=== PATIENT | female | born 1945 | race Caucasian/White ===

== ENCOUNTER 2017-07-20 15:29 | Inpatient (IN) | payer OTHER ==
[2017-07-20] MEDS ORDERED: METHOCARBAMOL 500 MG TAB PO PRN (17:38)
[2017-07-20] MEDS ORDERED: BENZONATATE 100 MG CAP PO PRN (17:38)
[2017-07-20] MEDS ORDERED: SENNOSIDES 1 TAB PO PRN (17:55)
[2017-07-20] MEDS ORDERED: POLYETHYLENE GLYCOL 3350 17 GM PKT PO PRN (17:55)
[2017-07-20] MEDS ORDERED: HYDROCODONE/APAP 5/325 TAB PO PRN (17:55)
--- NOTE | 2017-07-20 19:08 | GHP ---
[f rep st] HISTORY AND PHYSICAL POST ADMISSION PHYSICIAN EVALUATION AND REHABILITATION TREATMENT PLAN DATE OF ADMISSION: 07/20/2017 DATE OF EVALUATION: 07/20/2017. TIME OF EVALUATION: 1715 hours. REFERRING FACILITY: [facility]. REFERRING PHYSICIAN: Richard Rueda MD IMPAIRMENT GROUP: 2.1. DATE OF ONSET: 07/15/2017. ADDITIONAL REFERRING PHYSICIAN: She was also managed by the hospitalist service. 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 ETIOLOGIC DIAGNOSIS: Nontraumatic brain dysfunction. HISTORY OF PRESENT ILLNESS: This is a 71-year-old woman who came to [facility] on 07/15/2017. She had a headache, right facial droop, and right arm weakness. She had awakened with these symptoms and her had called 911 earlier in the evening. She had taken some cold medicine and had an accidental aspiration and violent coughing fit. She had had upper respiratory symptoms going on for several days, for which she had been taking NyQuil, as well as ibuprofen and aspirin. Head CT in the hospital showed intraparenchymal hemorrhage in the left basal ganglia suggestive of hypertensive hemorrhage. She was treated with a nicardipine infusion and admitted to the intensive care unit. She was eventually transitioned to oral antihypertensives. She had a urinalysis suggestive of a urinary tract infection and was treated with ceftriaxone IV for it. She was otherwise medically stabilized and ready for rehabilitation. STUDIES: During her hospital stay, CBC was within normal limits. Hemoglobin was 13.5 and hematocrit was 39.8 on 07/19/2017. There was no elevated white blood cell count during her stay. Serum chemistries revealed normal renal function and electrolytes. Creatinine was 0.67 both on admission and on 2 subsequent determinations, 07/18/2017 and 07/19/2017. Liver function tests were within normal limits. Hemoglobin A1c was checked and was slightly elevated at 5.7. Magnesium was normal. Serum osmolarity was normal. Coagulation studies were normal. Troponin I was less than 0.017. Urinalysis showed positive nitrite. It was negative for protein. Microscopic showed 3+ bacteria. The urine red and white blood cell counts were not abnormal. PRECAUTIONS: She is a fall risk. ACTIVE COMORBIDITIES: She has no active tier 1, tier 2, or tier 3 comorbidities. PAST MEDICAL HISTORY: Supraventricular tachycardia. PAST SURGICAL HISTORY: She has had a transcatheter ablation for the tachycardia. PREHOSPITAL MEDICATIONS: She was taking aspirin and cold medicine. ADMISSION MEDICATIONS: 1. Acetaminophen 650 mg p.o. q.4 hours p.r.n. 2. Amlodipine 10 mg p.o. daily. 3. Benzonatate 100 mg p.o. q.4 hours p.r.n. 4. Cefuroxime axetil 250 mg p.o. twice daily. 5. Docusate 100 mg p.o. daily. 6. Famotidine 20 mg p.o. twice daily. 7. Fluticasone nasal 1 spray each naris twice daily. 8. Heparin 5000 units subcutaneous twice daily. 9. Methocarbamol 250 mg p.o. q.6 hours p.r.n. ALLERGIES: There is an allergy listed to penicillins. PSYCHOSOCIAL HISTORY: She is . She lives with her . 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 She [place] and is [place] to visit tomorrow and she has 2 grandchildren. She has a remote history of smoking and quit in 1969. She had been drinking approximately 2 glasses of wine per night but reports that she is not going to return to that level of alcohol consumption. FAMILY HISTORY: Noncontributory. REVIEW OF SYSTEMS: She still has a cough. She denies dyspnea. She denies difficulty swallowing. She denies vision changes. She has had some neuropathic -type symptoms on the right side of her body, as well as some back pain. She has had improvement in her ability to move but still has weakness and lack of coordination in the right upper and lower extremities. She has reduced sensation in her right upper and lower extremities, though this has been improving as well. She denies nausea or vomiting. She has had some constipation but has been moving her bowels. She denies dysuria or urinary frequency. She denies joint pain or joint swelling. She denies skin rash or skin breakdown. Otherwise, a 10-point review of systems is negative. PHYSICAL EXAMINATION: VITAL SIGNS: Blood pressure is 113/67, heart rate is 95 , respiratory rate is 16, oxygen saturation is 94% on room air. Temperature is 36.9 degrees centigrade. Her weight is 64.5 kg for a body mass index of 26. GENERAL: This is a well-nourished, well-developed woman, appears her chronologic age, sitting up in a chair, dressed in street clothes, cooperative, and in no acute distress. HEENT: Extraocular movements are intact. Pupils are equal, round, and reactive to light. Mucous membranes are moist. Dentition is in good condition. She has an uncrowded airway, Mallampati class 1. There are no oropharyngeal mucosal lesions. NECK: Supple. HEART: There is a regular rate and rhythm with no murmurs, rubs, or gallops. LUNGS: Clear to auscultation bilaterally. ABDOMEN: Soft, nontender, nondistended with normoactive bowel sounds and no hepatosplenomegaly. EXTREMITIES: There is no cyanosis, clubbing, or edema. NEUROLOGIC: She is alert and oriented x3. She has very mild dysarthria. Cranial nerves 2-12 are grossly intact. She has decent strength in the right upper and lower extremities overall, , but she takes some time to develop power. Quick Sketch Artist strength i in the right hand s not more than 4/5, and she is unable to abduct her shoulder fully to 90 degrees and she has ataxia on the right upper extremity. On the left upper and lower extremities, there is no weakness. Sensation on the right is present but reduced to light touch, reduced more so distally, both in the upper and lower extremities. Visual costa by confrontation are suggestive of a mild deficit on the right field of vision, more so in the right lower quadrant than the right upper quadrant. Attempted [id number] on the right side is discoordinated. Regarding pronator drift, on the right, to the extent that she can raise the arm, when she closes her eyes, her fingers curl and there is a minor pronator drift noted. CURRENT LEVEL OF FUNCTION: Per the pre-admission screen: regarding diet, feeding, and swallowing, she is on a regular diet with thin liquids. She required minimal assist for feeding and maximal assist to cut food, open containers, and set up her meal. She had dysphagia precautions with swallow strategies, required to be upright at 90 degrees for all p.o. intake, to take small single bites, to swallow each bite or sip before the next one. Regarding bathing, she required assistance. For dressing, she required assistance. For toileting, she required maximal assistance for caridad care and minimal assistance for transfers to the bedside commode. Bed mobility was accomplished with minimal to moderate assist to the left with the head of the bed elevated and voice cues to arise from supine to the edge of the bed. Transfers were done with minimal assist for [id number] with manual cues for right quadriceps activation and with cues for lateral weight shifting and sequencing. She used a front-wheeled walker. She was able to ambulate 50 feet with minimal assist. She required an Kang wrap to attach her right hand to the walker. She required cues for proper positioning of the right lower extremity inside her base of support. There was an inconsistent step length. She had improved stability of the right lower extremity with use of an AFO. Regarding balance, static sitting required minimal assist. Dynamic sitting required minimal assist. Static standing required moderate assist of 2 and dynamic standing required moderate assist of 2. Her endurance was fair. She ambulated 20 feet with moderate assist of 2. She required moderate assistance to maintain hip in extension and activate the quads and maximal cues for sequencing. Regarding communication, she was noted to have mild dysphagia and word-finding pauses. Regarding cognition, she was noted to be able to follow commands but to have some aphasia. IMPRESSION: This is a 71-year-old woman who had a hemorrhagic cerebrovascular accident on 07/15/2017. She was managed by the neurosurgery service at [facility], but no surgery was required. She has had some improvement in her deficits, in particular with improved strength in the right upper and lower extremities and improvement in dysphagia. However, she continues to have significant deficits to mobility and activities of daily living and more subtle deficits to communication and cognition. She does not have a prior history of hypertension, though hypertension was thought to be the etiology of the hemorrhage. She had symptoms of an upper respiratory infection for some time prior to admission and it could be the NSAIDs that she was taking for symptom management had raised her blood pressure. Additionally, the coughing fit that she suffered may also have resulted in acutely high blood pressure. She is currently well managed regarding blood pressure on amlodipine. It will be observed during her stay whether she needs the dose that she is on or whether it can be reduced. She is appropriately anticoagulated with subcutaneous heparin as she has hemiparesis and reduced mobility. Her goal is to complete a rehabilitation stay and discharge to home with supportive services. For a safe discharge, it is anticipated that she will be able to sit independently at the edge of the bed. She will achieve modified independence for eating. She likely will require supervision for bed mobility, contact guard for transfers and for ambulation for short distances with a erendira walker. She will be able to navigate a wheelchair independently. She will require contact guard to minimal assist for dressing. She will require assistance for bathing, shopping, household management, and meal preparation. She will be able to tolerate the least restrictive device. She will have therapy with Physical Therapy, Occupational Therapy, and Speech and Language Pathology for 60 minutes per day per discipline on 7 days of the week. Her expected duration of stay is 14-21 days. It is anticipated that upon discharge she will continue to benefit from home health services including nursing, speech and language pathology, a nurse's aide , occupational therapy, and physical therapy. She also will benefit from support groups including possibly stroke or brain injury support groups. PLAN: 1. Left basal ganglia hemorrhagic stroke with right upper and lower extremity weakness, ataxia, and reduced sensation. PT and OT to optimize mobility and activities of daily living for her discharge home with supervision or assistance per . 2. Mild dysarthria and mild expressive aphasia. Assessment and treatment per Speech and Language Pathology. 3. Hypertension. She currently is normotensive on 10 mg of amlodipine. Blood pressure will be monitored and medications adjusted as needed. 4. History of regular alcohol use. This also may have increased blood pressure. She reports that she is interested in drinking less or drinking not all. This can be further assessed per manager social on the unit regarding any specific needs that she might have upon discharge. 5. Episode of neuropathic pain. May be related to return of sensation to the upper and lower extremities. She reports that [place] was effective to treat this while she was in the hospital. I will prescribe this on a p.r.n. basis. If she has persistent neuropathic symptoms, she might be better served with treatment with gabapentin. 6. Possible urinary tract infection. The urinalysis was somewhat suggestive, but she had no elevated white blood cells in the urine or elevated white blood cells on CBC and she has not had symptoms. She has had 5 days of antibiotics. I will not continue the cefuroxime that was prescribed out of the hospital. 7. Upper respiratory infection and cough. Continue benzonatate on a p.r.n. basis, as well as fluticasone nasal spray. 8. Prophylaxis. Will continue subcutaneous heparin as she is at elevated risk for deep vein thrombosis with hemiparesis and reduced mobility. Will additionally continue famotidine for gastrointestinal prophylaxis while she is on the heparin. FOLLOWUP: Unclear from hospital orders at present, but she will likely need followup with neurosurgeon, Dr. Rueda, likely after her discharge from inpatient rehabilitation. /[id number]/MODL MTDD
[2017-07-20] MEDS ORDERED: CEFUROXIME AXETIL 250 MG TAB PO SCH (21:00)
[2017-07-20] MEDS: FLUTICASONE NASAL 120 SPRAYS/16 GM MDI EACHNARE SCH (21:18)
[2017-07-20] MEDS: HEPARIN 5,000 UNIT/0.5 ML SYR SC SCH (21:27)
[2017-07-20] MEDS: FAMOTIDINE 20 MG TAB PO SCH (21:27)
[2017-07-21] MEDS: DOCUSATE SODIUM 100 MG CAP PO SCH (08:40)
[2017-07-21] MEDS: FAMOTIDINE 20 MG TAB PO SCH ×2 (08:40→21:32)
[2017-07-21] MEDS: HEPARIN 5,000 UNIT/0.5 ML SYR SC SCH ×2 (09:08→21:32)
[2017-07-21] MEDS: FLUTICASONE NASAL 120 SPRAYS/16 GM MDI EACHNARE SCH (09:10)
--- NOTE | 2017-07-21 09:32 | SOAPPROG ---
SOAP Progress Note Assessment/Plan: Assessment: 71-year-old woman status post left basal ganglia hemorrhagic CV on 07/15/2017, thought to be hypertensive in etiology possibly due to NSAID use, URI and paroxysmal coughing. 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 PT and OT to optimize mobility and activities of daily living for her discharge home with supervision or assistance per . * Mild dysarthria and mild expressive aphasia. Assessment and treatment per Speech and Language Pathology. *Hypertension. She currently is normotensive on 10 mg of amlodipine. Blood pressure will be monitored and medications adjusted as needed. * History of regular alcohol use. This also may have increased blood pressure. She reports that she is interested in drinking less or drinking not all. This can be further assessed per protective services social worker on the unit regarding any specific needs that she might have upon discharge. * Neuropathic pain.? May be related to return of sensation to the upper and lower extremities. Acetaminophen/hydrocodone has been prescribed as she reports this was helpful in the hospital but she has not used it. If she has consistent neuropathic symptoms, consider initiation of gabapentin. * Possible urinary tract infection. S/P 5 days of antibiotics. Unclear if she truly had a UTI. Monitor for return of symptoms. *Upper respiratory infection and cough. Continue benzonatate on a p.r.n. basis , as well as fluticasone nasal spray. * Prophylaxis. Will continue subcutaneous heparin as she is at elevated risk for deep vein thrombosis with hemiparesis and reduced mobility. Will additionally continue famotidine for gastrointestinal prophylaxis while she is on the heparin. FOLLOWUP: Unclear from hospital orders at present, but she will likely need followup with neurosurgeon, Dr. Rueda, likely after her discharge from inpatient rehabilitation. 07/21/17 13:35 Subjective: Reports some nasal congestion. No cough or dyspnea, no fevers or chills not in pain. Slept well. Objective: Vital Signs Temp Pulse Resp BP Pulse Ox 37.0 C 90 15 100/94 H 91 L 07/21/17 06:46 07/21/17 06:46 07/21/17 06:46 07/21/17 06:46 07/21/17 06:46 07/20/17 07/21/17 07/22/17 05:59 05:59 05:59 Intake Total 200 100 Output Total 500 350 Balance -300 -250 Physical Exam - Physical Exam General Appearance: WD/WN, alert, no apparent distress Respiratory: normal breath sounds, No crackles, No rhonchi, No wheezing Cardiac/Chest: regular rate, rhythm, No diastolic murmur, No systolic murmur Skin: normal color, warm/dry Neuro/Psych: alert, normal mood/affect, speech abnormalities (Mild dysarthria) ICD10 Worksheet Patient Problems: Problems Problem Status Onset Hemorrhagic cerebrovascular accident (CVA) Acute
--- NOTE | 2017-07-21 09:32 | PDOREHIP ---
Admission [facility] - Admission - 3 Day Assessment Period Admission Date/Day 1: 07/20/17 Day 2: 07/21/17 Day 3: 07/22/17 - Active Diagnoses Comorbidities and Co-existing Conditions at Admission: 11388. None of the Above - Skin Conditions Unhealed Pressure Ulcer (1 or more/Stage 1 or >)-Admission: 0. No
[2017-07-22] MEDS: FLUTICASONE NASAL 120 SPRAYS/16 GM MDI EACHNARE SCH ×3 (05:15→20:38)
[2017-07-22] MEDS: ACETAMINOPHEN 325 MG TAB PO PRN (07:49)
[2017-07-22] MEDS: DOCUSATE SODIUM 100 MG CAP PO SCH (07:57)
[2017-07-22] MEDS: FAMOTIDINE 20 MG TAB PO SCH ×2 (07:58→20:39)
[2017-07-22] MEDS: HEPARIN 5,000 UNIT/0.5 ML SYR SC SCH ×2 (07:58→20:23)
[2017-07-22] MEDS ORDERED: MAGNESIUM HYDROXIDE 30 ML UDCUP PO PRN (11:23)
[2017-07-22] MEDS ORDERED: BACLOFEN 10 MG TAB PO PRN (11:23)
[2017-07-22] MEDS ORDERED: BISACODYL 10 MG SUPP PR PRN (11:23)
[2017-07-22] MEDS ORDERED: LACTULOSE 20 GM/30 ML UDCUP PO PRN (11:23)
--- NOTE | 2017-07-22 12:59 | HOSPPROG ---
Hospitalist Progress Note Assessment/Plan: Assessment: 71-year-old woman status post left basal ganglia hemorrhagic CV on , thought to be hypertensive in etiology Plan: * Left basal ganglia hemorrhagic stroke with right upper and lower extremity weakness, ataxia, and reduced sensation -PT and OT to optimize mobility and activities of daily living for her discharge home with supervision or assistance per . * Mild dysarthria and mild expressive aphasia -Assessment and treatment per Speech and Language Pathology. * Hypertension. She currently is normotensive on 10 mg of amlodipine, continue * History of regular alcohol use. Currently no e/o withdraw, patient desires sobriety, rec NUMERICAL CONTROL OPERATOR assistance on 07/24 * Acute pain. Suspect 2/2 muscular strain in setting of patient adjusting to new movements, w/ increased truncal/core work, albeit neuropathic component is certainly possible -D/w patient, will trial non-pharmacologic methods first (ice, heat, repositioning), then PRN tylenol and baclofen, w/ norco as final breakthrough -Will reassess tomorrow, if appears more neuropathic, then will start gabapentin * Possible urinary tract infection. S/P 5 days of antibiotics. Unclear if she truly had a UTI. Monitor for return of symptoms. * Upper respiratory infection and cough. Continue benzonatate on a p.r.n. basis , as well as fluticasone nasal spray. * Constipation. Bowel regimen ordered Diet. As directed by PAINT MIXER HAND PPx. High risk, on hep SC Code. Full Dispo. ADD uncertain, Unclear from hospital orders at present, but she will likely need followup with neurosurgeon, Dr. Rueda, likely after her discharge from inpatient rehabilitation. Subjective: patient reports total body pain o/n, wants to avoid opiates, feels constipated Objective: Vital Signs Temp Pulse Resp BP Pulse Ox 37 C 92 16 126/69 H 92 07/22/17 07:56 07/22/17 07:56 07/21/17 20:00 07/22/17 07:57 07/21/17 22:49 07/21/17 07/22/17 07/23/17 05:59 05:59 05:59 Intake Total 200 1340 Output Total 500 1450 Balance -300 -110 - Physical Exam Constitutional: no apparent distress, appears nourished, not in pain, uncomfortable Cardiovascular: regular rate and rhythym, no murmur, rub, or gallop, No edema Respiratory: no respiratory distress, no rales or rhonchi, clear to auscultation Gastrointestinal: normoactive bowel sounds, soft, non-tender abdomen, no palpable masses, No distension Neurologic: AAOx3, sensation intact bilaterally, weakness (RUE and RLE motor deficits), facial droop (R facial palsy), No CN II-XII Intact (XI R paresis) Psychiatric: interacting appropriately, not anxious, not encephalopathic, thought process linear ICD10 Worksheet Patient Problems: Problems Problem Status Onset Hemorrhagic cerebrovascular accident (CVA) Acute
[2017-07-22] MEDS: SENNOSIDES 1 TAB PO SCH (20:22)
[2017-07-23] MEDS: HEPARIN 5,000 UNIT/0.5 ML SYR SC SCH ×2 (07:50→20:17)
[2017-07-23] MEDS: DOCUSATE SODIUM 100 MG CAP PO SCH (07:51)
[2017-07-23] MEDS: SENNOSIDES 1 TAB PO SCH ×2 (07:51→20:16)
[2017-07-23] MEDS: FAMOTIDINE 20 MG TAB PO SCH ×2 (07:51→20:16)
[2017-07-23] MEDS: ACETAMINOPHEN 325 MG TAB PO PRN ×2 (08:02→20:19)
[2017-07-23] MEDS: FLUTICASONE NASAL 120 SPRAYS/16 GM MDI EACHNARE SCH ×2 (08:06→20:17)
[2017-07-23] MEDS ORDERED: METHOCARBAMOL 500 MG TAB PO PRN (12:30)
--- NOTE | 2017-07-23 12:34 | HOSPPROG ---
Hospitalist Progress Note Assessment/Plan: Assessment: 71-year-old woman status post left basal ganglia hemorrhagic CV on , thought to be hypertensive in etiology Plan: * Left basal ganglia hemorrhagic stroke with right upper and lower extremity weakness, ataxia, and reduced sensation -PT and OT to optimize mobility and activities of daily living for her discharge home with supervision or assistance per . * Mild dysarthria and mild expressive aphasia -Assessment and treatment per Speech and Language Pathology. * Hypertension. She currently is normotensive on 10 mg of amlodipine, continue * History of regular alcohol use. Currently no e/o withdraw, patient desires sobriety, rec LEAD SOFTWARE TESTER assistance on 07/24 * Acute pain. Suspect 2/2 muscular strain in setting of patient adjusting to new movements, w/ increased truncal/core work, albeit neuropathic component is certainly possible -cont trial non-pharmacologic methods first (ice, heat, repositioning), then PRN tylenol and robaxin, w/ norco as final breakthrough -good response from baclofen last PM but it did not last the entire night -d/w patient, will encourage trial of robaxin tonight, dose range written, and, if not successful, use baclofen PRN * Possible urinary tract infection. S/P 5 days of antibiotics. Unclear if she truly had a UTI. No recurrence of symptoms * Upper respiratory infection and cough. Continue benzonatate on a p.r.n. basis , as well as fluticasone nasal spray. * Constipation. Bowel regimen ordered, had BMs Diet. As directed by COLORING ROOM WORKER PPx. High risk, on hep SC Code. Full Dispo. ADD uncertain, Unclear from hospital orders at present, but she will likely need followup with neurosurgeon, Dr. Rueda, likely after her discharge from inpatient rehabilitation. Subjective: patient worked fully w/ PT, using tylenol during day for pain mgmt, had BM Objective: Vital Signs Temp Pulse Resp BP Pulse Ox 36.9 C 85 15 99/60 L 90 L 07/23/17 07:48 07/23/17 07:48 07/23/17 07:48 07/23/17 07:52 07/23/17 07:48 07/22/17 07/23/17 07/24/17 05:59 05:59 05:59 Intake Total 1340 840 240 Output Total 1450 900 1 Balance -110 -60 239 - Physical Exam Constitutional: no apparent distress, appears nourished, not in pain, No uncomfortable Cardiovascular: regular rate and rhythym, no murmur, rub, or gallop, No edema Respiratory: no respiratory distress, no rales or rhonchi, clear to auscultation Gastrointestinal: normoactive bowel sounds, soft, non-tender abdomen, no palpable masses, No distension Neurologic: AAOx3, weakness (RUE w/ some apraxia), facial droop (R face palsy), No sensation intact bilaterally (paresthesias RUE/RLE) Psychiatric: interacting appropriately, not anxious, not encephalopathic, thought process linear ICD10 Worksheet Patient Problems: Problems Problem Status Onset Hemorrhagic cerebrovascular accident (CVA) Acute
[2017-07-23] MEDS ORDERED: BACLOFEN 10 MG TAB PO PRN (12:36)
[2017-07-24] MEDS: HEPARIN 5,000 UNIT/0.5 ML SYR SC SCH ×2 (07:47→20:04)
[2017-07-24] MEDS: DOCUSATE SODIUM 100 MG CAP PO SCH (07:52)
[2017-07-24] MEDS: FAMOTIDINE 20 MG TAB PO SCH ×2 (07:52→20:03)
[2017-07-24] MEDS: SENNOSIDES 1 TAB PO SCH ×2 (07:52→20:03)
[2017-07-24] MEDS: FLUTICASONE NASAL 120 SPRAYS/16 GM MDI EACHNARE SCH ×2 (07:54→20:03)
--- NOTE | 2017-07-24 12:15 | SOAPPROG ---
SOAP Progress Note Assessment/Plan: Assessment: 71-year-old woman status post left basal ganglia hemorrhagic CV on 07/15/2017, thought to be hypertensive in etiology possibly due to NSAID use, URI and paroxysmal coughing. 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 * Minimal assist for bed mobility. Sit to stand transfer with contact guard assist and a quad cane. Ambulated 70 ft with a quad cane, right AFO and contact guard assist. Negotiated 1 step with total assistance. She has decreased balance and decreased right lower extremity weight-bearing. OT notes right upper extremity neglect and decreased sensation she has dressing with minimal assist to standby assist. Shower transfer was done with total assist, bathing with moderate assist. * Continue PT and OT to optimize mobility and activities of daily living for her discharge home with supervision or assistance per . * Mild dysarthria and mild expressive aphasia. * Worse with fatigue. * Continue Speech and Language Pathology. *Hypertension. Adequate control with 10 mg of amlodipine. Blood pressure will be monitored and medications adjusted as needed. * History of regular alcohol use. This also may have increased blood pressure. She reports that she is interested in drinking less or drinking not all. This can be further assessed per forensic social worker on the unit regarding any specific needs that she might have upon discharge. * Neck/shoulder pain. * Schedule acetaminophen. * Ordered massage. * Possible urinary tract infection. S/P 5 days of antibiotics. Unclear if she truly had a UTI. Monitor for return of symptoms. *Upper respiratory infection and cough. Continue benzonatate on a p.r.n. basis , as well as fluticasone nasal spray. * Prophylaxis. Will continue subcutaneous heparin as she is at elevated risk for deep vein thrombosis with hemiparesis and reduced mobility. Will additionally continue famotidine for gastrointestinal prophylaxis while she is on the heparin. FOLLOWUP: Unclear from hospital orders at present, but she will likely need followup with neurosurgeon, Dr. Rueda, likely after her discharge from inpatient rehabilitation. Attended staffing, 15 min. Discussed with case management, dietitian, nursing, PT, OT, [employer] NO[employer]LE OPERATOR. Plans to discharge home with . Set tentative discharge date of 08/08/2017. 07/24/17 12:09 Subjective: Complains of shoulder pain and neck pain. Says she has reduced range of motion in the neck. Pain interfered with sleep. Otherwise doing well. Objective: Vital Signs Temp Pulse Resp BP Pulse Ox 36.7 C 79 16 116/80 92 07/24/17 05:00 07/24/17 05:00 07/24/17 05:00 07/24/17 07:51 07/24/17 05:00 07/23/17 07/24/17 07/25/17 05:59 05:59 05:59 Intake Total 840 780 420 Output Total 900 952 Balance -60 -172 420 - Time Spent With Patient Time Spent With Patient: Greater than 35 min floor time today, including more than 50% of time in coordination of care during staffing meeting, and counseling patient. Physical Exam - Physical Exam General Appearance: WD/WN, alert, no apparent distress Neck: limited range of motion, No tender lateral, No tender midline Respiratory: normal breath sounds, No crackles, No rhonchi, No wheezing Cardiac/Chest: regular rate, rhythm, No diastolic murmur, No systolic murmur Skin: normal color, warm/dry Neuro/Psych: alert, normal mood/affect, oriented x 3 ICD10 Worksheet Patient Problems: Problems Problem Status Onset Hemorrhagic cerebrovascular accident (CVA) Acute
[2017-07-24] MEDS: ACETAMINOPHEN 500 MG TAB PO SCH ×2 (13:25→20:55)
[2017-07-24] MEDS ORDERED: ACETAMINOPHEN 325 MG TAB PO SCH (14:00)
[2017-07-25] MEDS: ACETAMINOPHEN 500 MG TAB PO SCH ×3 (06:19→21:02)
[2017-07-25] MEDS: FLUTICASONE NASAL 120 SPRAYS/16 GM MDI EACHNARE SCH ×2 (08:06→21:02)
[2017-07-25] MEDS: HEPARIN 5,000 UNIT/0.5 ML SYR SC SCH ×2 (08:10→21:02)
[2017-07-25] MEDS: FAMOTIDINE 20 MG TAB PO SCH ×2 (08:11→21:02)
[2017-07-25] MEDS: SENNOSIDES 1 TAB PO SCH ×2 (08:12→21:01)
[2017-07-25] MEDS: DOCUSATE SODIUM 100 MG CAP PO SCH (08:12)
--- NOTE | 2017-07-25 11:50 | SOAPPROG ---
SOAP Progress Note Assessment/Plan: Assessment: 71-year-old woman status post left basal ganglia hemorrhagic CV on 07/15/2017, thought to be hypertensive in etiology possibly due to NSAID use, URI and paroxysmal coughing. 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 * Functional independence measure 81 on 07/24/2017. Minimal assist for bed mobility. Sit to stand transfer with contact guard assist and a quad cane. Ambulated 70 ft with a quad cane, right AFO and contact guard assist. Negotiated 1 step with total assistance. She has decreased balance and decreased right lower extremity weight-bearing. OT notes right upper extremity neglect and decreased sensation. Dressing with minimal assist to standby assist. Shower transfer was done with total assist, bathing with moderate assist. * Continue PT and OT to optimize mobility and activities of daily living for her discharge home with supervision or assistance per . * Mild dysarthria and mild expressive aphasia. * Worse with fatigue. * Continue Speech and Language Pathology. *Hypertension. Adequate control with 10 mg of amlodipine. Blood pressure will be monitored and medications adjusted as needed. * History of regular alcohol use. This also may have increased blood pressure. She reports that she is interested in drinking less or drinking not all. This can be further assessed per social media campaign manager on the unit regarding any specific needs that she might have upon discharge. * Neck/shoulder pain. * Schedule acetaminophen. * Ordered massage. * Possible urinary tract infection. S/P 5 days of antibiotics. Unclear if she truly had a UTI. Monitor for return of symptoms. *Upper respiratory infection and cough. Symptoms largely resolved. Continue benzonatate on a p.r.n. basis, as well as fluticasone nasal spray. * Prophylaxis. Will continue subcutaneous heparin as she is at elevated risk for deep vein thrombosis with hemiparesis and reduced mobility. Will additionally continue famotidine for gastrointestinal prophylaxis while she is on the heparin. FOLLOWUP: Unclear from hospital orders at present, but she will likely need followup with neurosurgeon, Dr. Rueda, likely after her discharge from inpatient rehabilitation. Plans to discharge home with . Set tentative discharge date of 2017. 07/25/17 11:50 Subjective: Still has neck stiffness and pain but it is improved. Not using any oxycodone; adequate pain control with acetaminophen. Otherwise without complaints. She reports she has some phlegm a but overall upper respiratory symptoms resolved. Objective: Vital Signs Temp Pulse Resp BP Pulse Ox 36.6 C 100 16 106/68 94 07/25/17 08:00 07/25/17 09:26 07/25/17 08:00 07/25/17 10:50 07/25/17 08:00 07/24/17 07/25/17 07/26/17 05:59 05:59 05:59 Intake Total 780 1460 350 Output Total 952 520 201 Balance -172 940 149 Physical Exam - Physical Exam General Appearance: WD/WN, alert, no apparent distress Neck: limited range of motion Respiratory: normal breath sounds, No crackles, No rhonchi, No wheezing Cardiac/Chest: regular rate, rhythm, No edema Skin: normal color, warm/dry Neuro/Psych: alert, normal mood/affect, oriented x 3, motor weakness (Right upper extremity ataxia) ICD10 Worksheet Patient Problems: Problems Problem Status Onset Hemorrhagic cerebrovascular accident (CVA) Acute
[2017-07-26] MEDS: ACETAMINOPHEN 500 MG TAB PO SCH ×3 (05:50→21:24)
[2017-07-26] MEDS: DOCUSATE SODIUM 100 MG CAP PO SCH (09:05)
[2017-07-26] MEDS: SENNOSIDES 1 TAB PO SCH ×2 (09:05→21:25)
[2017-07-26] MEDS: HEPARIN 5,000 UNIT/0.5 ML SYR SC SCH ×2 (09:05→21:25)
[2017-07-26] MEDS: FAMOTIDINE 20 MG TAB PO SCH ×2 (09:05→21:25)
[2017-07-26] MEDS: FLUTICASONE NASAL 120 SPRAYS/16 GM MDI EACHNARE SCH ×2 (09:06→21:24)
--- NOTE | 2017-07-26 14:37 | SOAPPROG ---
SOAP Progress Note Assessment/Plan: Assessment: 71-year-old woman status post left basal ganglia hemorrhagic CV on 07/15/2017, thought to be hypertensive in etiology possibly due to NSAID use, URI and paroxysmal coughing. 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 * Functional independence measure 81 on 07/24/2017. Minimal assist for bed mobility. Sit to stand transfer with contact guard assist and a quad cane. Ambulated 70 ft with a quad cane, right AFO and contact guard assist. Negotiated 1 step with total assistance. She has decreased balance and decreased right lower extremity weight-bearing. OT notes right upper extremity neglect and decreased sensation. Dressing with minimal assist to standby assist. Shower transfer was done with total assist, bathing with moderate assist. * Continue PT and OT to optimize mobility and activities of daily living for her discharge home with supervision or assistance per . * Mild dysarthria and mild expressive aphasia. * Worse with fatigue. * Continue Speech and Language Pathology. *Hypertension. Adequate control with 10 mg of amlodipine. Blood pressure will be monitored and medications adjusted as needed. * History of regular alcohol use. This also may have increased blood pressure. She reports that she is interested in drinking less or drinking not all. This can be further assessed per social psychologist on the unit regarding any specific needs that she might have upon discharge. * Neck/shoulder pain. * Schedule acetaminophen. * Ordered massage. * Possible urinary tract infection. S/P 5 days of antibiotics. Unclear if she truly had a UTI. Monitor for return of symptoms. *Upper respiratory infection and cough. Symptoms largely resolved. Continue benzonatate on a p.r.n. basis, as well as fluticasone nasal spray. * Prophylaxis. Will continue subcutaneous heparin as she is at elevated risk for deep vein thrombosis with hemiparesis and reduced mobility. Will additionally continue famotidine for gastrointestinal prophylaxis while she is on the heparin. FOLLOWUP: Unclear from hospital orders at present, but she will likely need followup with neurosurgeon, Dr. Rueda, likely after her discharge from inpatient rehabilitation. Plan is to discharge home with . Set tentative discharge date of 2017. 07/26/17 14:35 Subjective: No complaints. Ambulated on treadmill with a light gait yesterday. Notes good movement with the right upper extremity but needs to incorporate functionally and working on that with OT. Has decreased sensation in the right upper and lower extremities. Objective: Vital Signs Temp Pulse Resp BP Pulse Ox 36.7 C 77 16 113/72 96 07/26/17 06:08 07/26/17 06:08 07/26/17 06:08 07/26/17 09:05 07/26/17 06:08 07/25/17 07/26/17 07/27/17 05:59 05:59 05:59 Intake Total 1460 1200 488 Output Total 520 651 200 Balance 940 549 288 Physical Exam - Physical Exam General Appearance: WD/WN, alert, no apparent distress Respiratory: No respiratory distress, No accessory muscle use Cardiac/Chest: No edema Skin: normal color, warm/dry Neuro/Psych: alert, normal mood/affect, oriented x 3, speech abnormalities ( Mild dysarthria) ICD10 Worksheet Patient Problems: Problems Problem Status Onset Hemorrhagic cerebrovascular accident (CVA) Acute
[2017-07-27] MEDS: ACETAMINOPHEN 500 MG TAB PO SCH ×3 (05:43→21:17)
[2017-07-27] MEDS: FAMOTIDINE 20 MG TAB PO SCH ×2 (08:52→21:16)
[2017-07-27] MEDS: FLUTICASONE NASAL 120 SPRAYS/16 GM MDI EACHNARE SCH ×2 (08:52→21:17)
[2017-07-27] MEDS: DOCUSATE SODIUM 100 MG CAP PO SCH (08:52)
[2017-07-27] MEDS: SENNOSIDES 1 TAB PO SCH ×2 (08:52→21:30)
[2017-07-27] MEDS: HEPARIN 5,000 UNIT/0.5 ML SYR SC SCH ×2 (08:56→21:17)
--- NOTE | 2017-07-27 10:48 | SOAPPROG ---
SOAP Progress Note Assessment/Plan: Assessment: 71-year-old woman status post left basal ganglia hemorrhagic CV on 07/15/2017, thought to be hypertensive in etiology possibly due to NSAID use, URI and paroxysmal coughing. 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 * Functional independence measure 81 on 07/24/2017. Minimal assist for bed mobility. Sit to stand transfer with contact guard assist and a quad cane. Ambulated 70 ft with a quad cane, right AFO and contact guard assist. Negotiated 1 step with total assistance. She has decreased balance and decreased right lower extremity weight-bearing. OT notes right upper extremity neglect and decreased sensation. Dressing with minimal assist to standby assist. Shower transfer was done with total assist, bathing with moderate assist. * Has ambulated 500' on litegate treadmill. * Continue PT and OT to optimize mobility and activities of daily living for her discharge home with supervision or assistance per . * Mild dysarthria and mild expressive aphasia. * Worse with fatigue. * Continue Speech and Language Pathology. *Hypertension. Blood pressure running low on 10 mg q.day of amlodipine. Decreased to 5 mg p.o. Q.day starting 07/27/2017. Continue to monitor and adjust as needed. * History of regular alcohol use. This also may have increased blood pressure. She reports that she is interested in drinking less or not drinking. This can be further assessed per social human services assistants on the unit regarding any specific needs that she might have upon discharge. * Neck/shoulder pain. * Schedule acetaminophen. * Ordered massage. * Possible urinary tract infection. S/P 5 days of antibiotics. Unclear if she truly had a UTI. Monitor for return of symptoms. *Upper respiratory infection and cough. Symptoms largely resolved. Continue benzonatate on a p.r.n. basis, as well as fluticasone nasal spray. * Prophylaxis. Will continue subcutaneous heparin as she is at elevated risk for deep vein thrombosis with hemiparesis and reduced mobility. Will additionally continue famotidine for gastrointestinal prophylaxis while she is on the heparin. FOLLOWUP: Unclear from hospital orders at present, but she will likely need followup with neurosurgeon, Dr. Rueda, likely after her discharge from inpatient rehabilitation. Plan is to discharge home with . Set tentative discharge date of 2017. 07/27/17 10:45 Subjective: Nurse noted low blood pressure this morning. She denies any symptoms of lightheadedness. Otherwise doing well. No cough or dyspnea, no fevers or chills. Objective: Vital Signs Temp Pulse Resp BP Pulse Ox 36.4 C 79 17 104/66 93 07/27/17 08:00 07/27/17 08:00 07/27/17 08:00 07/27/17 08:00 07/27/17 08:00 07/26/17 07/27/17 07/28/17 05:59 05:59 05:59 Intake Total 1200 1088 240 Output Total 651 1900 Balance 549 -812 240 Physical Exam - Physical Exam General Appearance: WD/WN, alert, no apparent distress Respiratory: normal breath sounds, No crackles, No rhonchi, No wheezing Cardiac/Chest: regular rate, rhythm, No edema, No diastolic murmur, No systolic murmur Skin: normal color, warm/dry Neuro/Psych: alert, normal mood/affect, oriented x 3, motor weakness (Right upper extremity ataxia) ICD10 Worksheet Patient Problems: Problems Problem Status Onset Hemorrhagic cerebrovascular accident (CVA) Acute
[2017-07-28] MEDS: ACETAMINOPHEN 500 MG TAB PO SCH (06:38)
[2017-07-28] MEDS: DOCUSATE SODIUM 100 MG CAP PO SCH (08:32)
[2017-07-28] MEDS: SENNOSIDES 1 TAB PO SCH ×2 (08:32→20:06)
[2017-07-28] MEDS: FLUTICASONE NASAL 120 SPRAYS/16 GM MDI EACHNARE SCH ×2 (08:32→20:06)
[2017-07-28] MEDS: FAMOTIDINE 20 MG TAB PO SCH ×2 (08:32→20:06)
[2017-07-28] MEDS: HEPARIN 5,000 UNIT/0.5 ML SYR SC SCH ×2 (08:32→20:07)
--- NOTE | 2017-07-28 11:24 | SOAPPROG ---
SOAP Progress Note Assessment/Plan: Assessment: 71-year-old woman status post left basal ganglia hemorrhagic CV on 07/15/2017, thought to be hypertensive in etiology possibly due to NSAID use, URI and paroxysmal coughing. 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 * Functional independence measure 81 on 07/24/2017. Minimal assist for bed mobility. Sit to stand transfer with contact guard assist and a quad cane. Ambulated 70 ft with a quad cane, right AFO and contact guard assist. Negotiated 1 step with total assistance. She has decreased balance and decreased right lower extremity weight-bearing. OT notes right upper extremity neglect and decreased sensation. Dressing with minimal assist to standby assist. Shower transfer was done with total assist, bathing with moderate assist. * Has ambulated 500' on litegate treadmill; ambulating 150' with single-point cane and CGA. May not be ready to ambulate with nursing to meals. * Continue PT and OT to optimize mobility and activities of daily living for her discharge home with supervision or assistance per . * Mild dysarthria and mild expressive aphasia. * Worse with fatigue. * Continue Speech and Language Pathology. *Hypertension. Blood pressure running low on 10 mg q.day of amlodipine. Decreased to 5 mg p.o. Q.day starting 07/27/2017. Continue to monitor and adjust as needed. * History of regular alcohol use. This also may have increased blood pressure. She reports that she is interested in drinking less or not drinking. This can be further assessed per licensed clinical social worker on the unit regarding any specific needs that she might have upon discharge. * Neck/shoulder pain. * Schedule acetaminophen. * Ordered massage. * Possible urinary tract infection. S/P 5 days of antibiotics. Unclear if she truly had a UTI. Monitor for return of symptoms. *Upper respiratory infection and cough. Symptoms largely resolved. Continue benzonatate on a p.r.n. basis, as well as fluticasone nasal spray. * Prophylaxis. Will continue subcutaneous heparin as she is at elevated risk for deep vein thrombosis with hemiparesis and reduced mobility. Will additionally continue famotidine for gastrointestinal prophylaxis while she is on the heparin. FOLLOWUP: Unclear from hospital orders at present, but she will likely need followup with neurosurgeon, Dr. Rueda, likely after her discharge from inpatient rehabilitation. Plan is to discharge home with . Set tentative discharge date of 2017. 07/28/17 11:22 Subjective: No complaints. Notes low blood pressure but does not feel lightheaded with standing. Working on ambulating with cane with physical therapy. Sleeps well. Not in pain. Objective: Vital Signs Temp Pulse Resp BP Pulse Ox 36.6 C 75 16 99/62 L 92 07/28/17 06:48 07/28/17 06:48 07/28/17 06:48 07/28/17 08:32 07/28/17 06:48 07/27/17 07/28/17 07/29/17 05:59 05:59 05:59 Intake Total 1088 580 Output Total 1900 300 550 Balance -812 280 -550 Physical Exam - Physical Exam General Appearance: WD/WN, alert, no apparent distress Respiratory: No respiratory distress, No accessory muscle use Cardiac/Chest: No edema Skin: normal color, warm/dry Neuro/Psych: alert, normal mood/affect, oriented x 3, abnormal gait (Ambulating with physical therapy, contact guard assist, using single-point cane and left hand, with right AFO. Frequent right foot drag.) ICD10 Worksheet Patient Problems: Problems Problem Status Onset Hemorrhagic cerebrovascular accident (CVA) Acute
[2017-07-29] MEDS: FAMOTIDINE 20 MG TAB PO SCH ×2 (07:50→20:11)
[2017-07-29] MEDS: SENNOSIDES 1 TAB PO SCH ×2 (07:50→20:11)
[2017-07-29] MEDS: DOCUSATE SODIUM 100 MG CAP PO SCH (07:50)
[2017-07-29] MEDS: HEPARIN 5,000 UNIT/0.5 ML SYR SC SCH ×2 (07:50→20:11)
[2017-07-29] MEDS: FLUTICASONE NASAL 120 SPRAYS/16 GM MDI EACHNARE SCH ×2 (07:51→20:11)
--- NOTE | 2017-07-29 10:22 | SOAPPROG ---
SOAP Progress Note Assessment/Plan: Assessment: 71-year-old woman status post left basal ganglia hemorrhagic CV on 07/15/2017, thought to be hypertensive in etiology possibly due to NSAID use, URI and paroxysmal coughing. 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 * Functional independence measure 81 on 07/24/2017. Minimal assist for bed mobility. Sit to stand transfer with contact guard assist and a quad cane. Ambulated 70 ft with a quad cane, right AFO and contact guard assist. Negotiated 1 step with total assistance. She has decreased balance and decreased right lower extremity weight-bearing. OT notes right upper extremity neglect and decreased sensation. Dressing with minimal assist to standby assist. Shower transfer was done with total assist, bathing with moderate assist. * Has ambulated 500' on litegate treadmill; ambulating 150' with single-point cane and CGA. May not be ready to ambulate with nursing to meals. * Continue PT and OT to optimize mobility and activities of daily living for her discharge home with supervision or assistance per . * Mild dysarthria and mild expressive aphasia. * Worse with fatigue. * Continue Speech and Language Pathology. *Hypertension. BLOOD PRESSURE THIS MORNING 108/62. PATIENT DOES NOT REPORT FEELING LIGHTHEADED OR DIZZY. Blood pressure running low on 10 mg q.day of amlodipine. Decreased to 5 mg p.o. Q.day starting 07/27/2017. Continue to monitor and adjust as needed. * History of regular alcohol use. This also may have increased blood pressure. She reports that she is interested in drinking less or not drinking. This can be further assessed per social sciences department chair on the unit regarding any specific needs that she might have upon discharge. * Neck/shoulder pain. ROTATOR CUFF STRENGTHENING EXERCISES, EXERCISES TO STRENGTHEN SECONDARY SCAPULAR STABILIZERS IS RECOMMENDED. * Schedule acetaminophen. * Ordered massage. * Possible urinary tract infection. S/P 5 days of antibiotics. Unclear if she truly had a UTI. Monitor for return of symptoms. *Upper respiratory infection and cough. LUNGS ARE CLEAR ON TODAY'S EXAM Symptoms largely resolved. Continue benzonatate on a p.r.n. basis, as well as fluticasone nasal spray. * Prophylaxis. Will continue subcutaneous heparin as she is at elevated risk for deep vein thrombosis with hemiparesis and reduced mobility. Will additionally continue famotidine for gastrointestinal prophylaxis while she is on the heparin. FOLLOWUP: Unclear from hospital orders at present, but she will likely need followup with neurosurgeon, Dr. Rueda, likely after her discharge from inpatient rehabilitation. Plan is to discharge home with . Set tentative discharge date of 2017. 07/28/17 11:22 Subjective: Plan: 07/29/17 10:23 Subjective: NO COMPLAINTS THIS MORNING. SHE REPORTS THAT HER THERAPIES ARE GOING WELL. SHE DOES NOT DESCRIBE FEELING LIGHTHEADED. SHE DENIES DIZZINESS. Objective: Vital Signs Temp Pulse Resp BP Pulse Ox 36.5 C 69 18 108/62 96 07/29/17 06:33 07/29/17 06:33 07/29/17 06:33 07/29/17 07:51 07/29/17 06:33 07/28/17 07/29/17 07/30/17 05:59 05:59 05:59 Intake Total 580 120 240 Output Total 300 1150 300 Balance 280 -1030 -60 Physical Exam - Physical Exam General Appearance: WD/WN, alert, no apparent distress Respiratory: lungs clear, normal breath sounds Cardiac/Chest: No edema Abdomen: non-tender, soft Skin: normal color, warm/dry Extremities: No swelling, No Bhavna's sign Neuro/Psych: motor weakness (MILD WEAKNESS OF RIGHT SHOULDER GIRDLE MUSCLES, RIGHT HIP FLEXORS AND QUADRICEPS. NORMAL TONE ALL 4 EXTREMITIES.) ICD10 Worksheet Patient Problems: Problems Problem Status Onset Hemorrhagic cerebrovascular accident (CVA) Acute
[2017-07-30] MEDS: ACETAMINOPHEN 500 MG TAB PO PRN (03:03)
[2017-07-30] MEDS: FLUTICASONE NASAL 120 SPRAYS/16 GM MDI EACHNARE SCH ×2 (07:45→21:00)
[2017-07-30] MEDS: SENNOSIDES 1 TAB PO SCH ×2 (07:46→20:56)
[2017-07-30] MEDS: FAMOTIDINE 20 MG TAB PO SCH ×2 (07:46→07:48)
[2017-07-30] MEDS: DOCUSATE SODIUM 100 MG CAP PO SCH (07:46)
[2017-07-30] MEDS: HEPARIN 5,000 UNIT/0.5 ML SYR SC SCH ×2 (07:49→20:57)
--- NOTE | 2017-07-30 09:57 | SOAPPROG ---
SOAP Progress Note Assessment/Plan: Assessment: 71-year-old woman status post left basal ganglia hemorrhagic CV on 07/15/2017, thought to be hypertensive in etiology possibly due to NSAID use, URI and paroxysmal coughing. 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 * Functional independence measure 81 on 07/24/2017. Minimal assist for bed mobility. Sit to stand transfer with contact guard assist and a quad cane. Ambulated 70 ft with a quad cane, right AFO and contact guard assist. Negotiated 1 step with total assistance. She has decreased balance and decreased right lower extremity weight-bearing. OT notes right upper extremity neglect and decreased sensation. Dressing with minimal assist to standby assist. Shower transfer was done with total assist, bathing with moderate assist. * Has ambulated 500' on litegate treadmill; ambulating 150' with single-point cane and CGA. May not be ready to ambulate with nursing to meals. * Continue PT and OT to optimize mobility and activities of daily living for her discharge home with supervision or assistance per . ENCOURAGING PATIENT TO AMBULATE IN HALLS MUCH POSSIBLE BETWEEN THERAPY SESSIONS USING FWW AND CONTACT GUARD ASSIST. * Mild dysarthria and mild expressive aphasia. * Worse with fatigue. * Continue Speech and Language Pathology. *Hypertension. BLOOD PRESSURE THIS MORNING 92/68. PATIENT DOES NOT REPORT FEELING LIGHTHEADED OR DIZZY. WILL HOLD TODAY'S DOSE OF AMLODIPINE AND RESTARTED TOMORROW AT 0900. * History of regular alcohol use. This also may have increased blood pressure. She reports that she is interested in drinking less or not drinking. This can be further assessed per psychosocial rehabilitation counselor on the unit regarding any specific needs that she might have upon discharge. * Neck/shoulder pain. ROTATOR CUFF STRENGTHENING EXERCISES, EXERCISES TO STRENGTHEN SECONDARY SCAPULAR STABILIZERS IS RECOMMENDED. * Schedule acetaminophen. * Ordered massage. * Possible urinary tract infection. S/P 5 days of antibiotics. Unclear if she truly had a UTI. Monitor for return of symptoms. *Upper respiratory infection and cough. LUNGS ARE CLEAR ON TODAY'S EXAM Symptoms largely resolved. Continue benzonatate on a p.r.n. basis, as well as fluticasone nasal spray. * Prophylaxis. Will continue subcutaneous heparin as she is at elevated risk for deep vein thrombosis with hemiparesis and reduced mobility. Will additionally continue famotidine for gastrointestinal prophylaxis while she is on the heparin. FOLLOWUP: Unclear from hospital orders at present, but she will likely need followup with neurosurgeon, Dr. Rueda, likely after her discharge from inpatient rehabilitation. Plan is to discharge home with . Set tentative discharge date of 2017. Subjective: Plan: 07/29/17 10:23 07/30/17 09:57 Subjective: SHE DENIES FEELING LIGHTHEADED OR DIZZY. SHE REPORTS THAT SHE FELT SLIGHTLY WEAK THIS MORNING AND DID NOT WANT TO WALK DOWN TO BREAKFAST. Objective: Vital Signs Temp Pulse Resp BP Pulse Ox 36.7 C 87 16 92/68 L 95 07/29/17 19:58 07/29/17 19:58 07/29/17 19:58 07/30/17 07:52 07/29/17 19:58 07/29/17 07/30/17 07/31/17 05:59 05:59 05:59 Intake Total 120 1020 Output Total 1150 700 Balance -1030 320 Physical Exam - Physical Exam General Appearance: WD/WN, alert, no apparent distress Respiratory: lungs clear, normal breath sounds Abdomen: non-tender, soft Extremities: No swelling, No Bhavna's sign Neuro/Psych: motor weakness (MILD RIGHT HEMIPARESIS. RIGHT AFO IN PLACE. 3+ 4- STRENGTH OF RIGHT QUADRICEPS, HIP FLEXORS 2+ 3-RIGHT TIBIALIS ANTERIOR) ICD10 Worksheet Patient Problems: Problems Problem Status Onset Hemorrhagic cerebrovascular accident (CVA) Acute
[2017-07-31] MEDS: SENNOSIDES 1 TAB PO SCH ×2 (09:04→20:02)
[2017-07-31] MEDS: DOCUSATE SODIUM 100 MG CAP PO SCH (09:04)
[2017-07-31] MEDS: HEPARIN 5,000 UNIT/0.5 ML SYR SC SCH (09:05)
[2017-07-31] MEDS: FLUTICASONE NASAL 120 SPRAYS/16 GM MDI EACHNARE SCH ×2 (09:05→20:01)
[2017-07-31] MEDS: FAMOTIDINE 20 MG TAB PO SCH (09:05)
--- NOTE | 2017-07-31 11:10 | SOAPPROG ---
SOAP Progress Note Assessment/Plan: Assessment: 71-year-old woman status post left basal ganglia hemorrhagic CV on 07/15/2017, thought to be hypertensive in etiology possibly due to NSAID use, URI and paroxysmal coughing. 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 * Functional independence measure 81 on 07/24/2017; improved to 93 as of 2017. At supervision level for bed mobility. Transfers are done with supervision to contact guard assist using a trekking pole and a right AFO; she ambulates 150 ft standby assist to contact guard assist. She has a right footdrop which is more ataxia than weakness. She is at supervision to contact guard assist level for activities of daily living. She needs contact guard assist for shower transfer. * Has ambulated 500' on litegate treadmill; ambulating 150' with single-point cane and CGA. May not be ready to ambulate with nursing to meals. * Continue PT and OT to optimize mobility and activities of daily living for her discharge home with supervision or assistance per . * Mild dysarthria and mild expressive aphasia. * Worse with fatigue. * Cannot use straws for drinking fluids. * Continue Speech and Language Pathology. *Hypertension. Blood pressure running low on 10 mg q.day of amlodipine. Decreased to 5 mg p.o. Q.day starting 07/27/2017. Decreased for to 2.5 mg q.day starting 08/01/2017. * History of regular alcohol use. This also may have increased blood pressure. She reports that she is interested in drinking less or not drinking. This can be further assessed per social science analyst on the unit regarding any specific needs that she might have upon discharge. * Neck/shoulder pain. * Schedule acetaminophen. * Ordered massage. * Possible urinary tract infection. S/P 5 days of antibiotics. Unclear if she truly had a UTI. Monitor for return of symptoms. *Upper respiratory infection and cough. Symptoms largely resolved. Continue benzonatate on a p.r.n. basis, as well as fluticasone nasal spray. * Prophylaxis. Mobility is much improved. Will discontinue subcutaneous heparin and famotidine starting 07/31/2017. FOLLOWUP: Unclear from hospital orders at present, but she will likely need followup with neurosurgeon, Dr. Rueda, likely after her discharge from inpatient rehabilitation. Plan is to discharge home with . Set tentative discharge date of 2017. 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 07/31/17 11:06 Subjective: No complaints but improved movement of the right upper committed and improved sensation. Sleeping well. Not in pain. Objective: Vital Signs Temp Pulse Resp BP Pulse Ox 36.9 C 118 H 16 108/65 93 07/31/17 06:37 07/31/17 09:43 07/31/17 06:37 07/31/17 09:43 07/31/17 06:37 07/30/17 07/31/17 08/01/17 05:59 05:59 05:59 Intake Total 1020 625 240 Output Total 700 850 Balance 320 -225 240 Physical Exam - Physical Exam General Appearance: WD/WN, alert, no apparent distress Respiratory: No respiratory distress, No accessory muscle use Skin: normal color, warm/dry Neuro/Psych: alert, normal mood/affect, oriented x 3, abnormal gait (With trekking pole L hand, exaggerated lifting on R leg to ensure foot clearance, CGA per PT.), motor weakness (Ataxia right upper extremity, improving) ICD10 Worksheet Patient Problems: Problems Problem Status Onset Hemorrhagic cerebrovascular accident (CVA) Acute
[2017-08-01] MEDS: FLUTICASONE NASAL 120 SPRAYS/16 GM MDI EACHNARE SCH ×2 (08:16→20:03)
[2017-08-01] MEDS: DOCUSATE SODIUM 100 MG CAP PO SCH (08:18)
[2017-08-01] MEDS: SENNOSIDES 1 TAB PO SCH ×2 (08:18→20:02)
--- NOTE | 2017-08-01 12:11 | SOAPPROG ---
SOAP Progress Note Assessment/Plan: Assessment: 71-year-old woman status post left basal ganglia hemorrhagic CV on 07/15/2017, thought to be hypertensive in etiology possibly due to NSAID use, URI and paroxysmal coughing. 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 * Functional independence measure 81 on 07/24/2017; improved to 93 as of 2017. At supervision level for bed mobility. Transfers are done with supervision to contact guard assist using a trekking pole and a right AFO; she ambulates 150 ft standby assist to contact guard assist. She has a right footdrop which is more ataxia than weakness. She is at supervision to contact guard assist level for activities of daily living. She needs contact guard assist for shower transfer. * Has ambulated 500' on litegate treadmill; ambulating 150' with single-point cane and CGA. May not be ready to ambulate with nursing to meals. * Continue PT and OT to optimize mobility and activities of daily living for her discharge home with supervision or assistance per . * Mild dysarthria and mild expressive aphasia. * Worse with fatigue. * Cannot use straws for drinking fluids. * Continue Speech and Language Pathology. *Hypertension. Blood pressure running low on 10 mg q.day of amlodipine. Decreased to 5 mg p.o. Q.day starting 07/27/2017. Decreased for to 2.5 mg q.day starting 08/01/2017. * History of regular alcohol use. This also may have increased blood pressure. She reports that she is interested in drinking less or not drinking. This can be further assessed per social work administrator on the unit regarding any specific needs that she might have upon discharge. * Neck/shoulder pain. * On acetaminophen PRN, last used 07/30/2017. * Ordered massage. * Possible urinary tract infection. S/P 5 days of antibiotics. Unclear if she truly had a UTI. Monitor for return of symptoms. *Upper respiratory infection and cough. Symptoms largely resolved. Continue benzonatate on a p.r.n. basis, as well as fluticasone nasal spray. * Prophylaxis. Mobility is much improved. Discontinued subcutaneous heparin and famotidine starting 07/31/2017. FOLLOWUP: Unclear from hospital orders at present, but she will likely need followup with neurosurgeon, Dr. Rueda, likely after her discharge from inpatient rehabilitation. Plan is to discharge home with . Set tentative discharge date of 2017. 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 08/01/17 12:09 Subjective: No complaints. Sleeping well. Happy to be on fewer medications. Not in pain. Objective: Vital Signs Temp Pulse Resp BP Pulse Ox 36.4 C 82 16 102/68 95 08/01/17 06:44 08/01/17 06:44 08/01/17 06:44 08/01/17 08:17 08/01/17 06:44 07/31/17 08/01/17 08/02/17 05:59 05:59 05:59 Intake Total 625 480 Output Total 850 2745 Balance -225 -1295 Physical Exam - Physical Exam General Appearance: WD/WN, alert, no apparent distress Respiratory: normal breath sounds, No crackles, No rhonchi, No wheezing Cardiac/Chest: regular rate, rhythm, No edema, No diastolic murmur, No systolic murmur Skin: normal color, warm/dry Neuro/Psych: alert, normal mood/affect, oriented x 3, abnormal gait (Ambulating with trekking pole in left hand, contact guard per Physical therapy, with occasional right foot drag, and narrow stance.), motor weakness (Ataxia, right hand, and can lose track of its position.) ICD10 Worksheet Patient Problems: Problems Problem Status Onset Hemorrhagic cerebrovascular accident (CVA) Acute
[2017-08-02] MEDS: DOCUSATE SODIUM 100 MG CAP PO SCH (08:18)
[2017-08-02] MEDS: SENNOSIDES 1 TAB PO SCH ×2 (08:19→19:38)
[2017-08-02] MEDS: FLUTICASONE NASAL 120 SPRAYS/16 GM MDI EACHNARE SCH ×2 (08:22→19:38)
--- NOTE | 2017-08-02 11:29 | SOAPPROG ---
SOAP Progress Note Assessment/Plan: Assessment: 71-year-old woman status post left basal ganglia hemorrhagic CV on 07/15/2017, thought to be hypertensive in etiology, possibly due to NSAID use, URI and paroxysmal coughing. 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 * Functional independence measure 81 on 07/24/2017; improved to 93 as of 2017. At supervision level for bed mobility. Transfers are done with supervision to contact guard assist using a trekking pole and a right AFO; she ambulates 150 ft standby assist to contact guard assist. She has a right footdrop which is more ataxia than weakness. She is at supervision to contact guard assist level for activities of daily living. She needs contact guard assist for shower transfer. * Has ambulated 500' on litegate treadmill; ambulating 150' with single-point cane and CGA. Ambulate with nursing to meals. * Continue PT and OT to optimize mobility and activities of daily living for her discharge home with supervision or assistance per . * Mild dysarthria and mild expressive aphasia. * Worse with fatigue. * Cannot use straws for drinking fluids. * Continue Speech and Language Pathology. Abnormal sensation R cheek starting 08/01/2017. * No changes in neurologic exam. Repeat brain imaging is not indicated. * May be related to recovery from basal ganglia hemorrhage. *Hypertension. Blood pressure running low on 10 mg q.day of amlodipine. Decreased to 5 mg p.o. Q.day starting 07/27/2017. Decreased for to 2.5 mg q.day starting 08/01/2017. * History of regular alcohol use. This also may have increased blood pressure. She reports that she is interested in drinking less or not drinking. This can be further assessed per high school social science teacher on the unit regarding any specific needs that she might have upon discharge. * Neck/shoulder pain. * On acetaminophen PRN, last used 07/30/2017. * Ordered massage. * Possible urinary tract infection. S/P 5 days of antibiotics. Unclear if she truly had a UTI. Monitor for return of symptoms. *Upper respiratory infection and cough. Symptoms largely resolved. Continue benzonatate on a p.r.n. basis, as well as fluticasone nasal spray. * Prophylaxis. Mobility is much improved. Discontinued subcutaneous heparin and famotidine starting 07/31/2017. FOLLOWUP: Unclear from hospital orders at present, but she will likely need followup with neurosurgeon, Dr. Rueda, likely after her discharge from inpatient rehabilitation. Plan is to discharge home with . Set tentative discharge date of 2017. Plan for outpatient PT OT DENTAL INTERNSHIP. 08/02/17 11:27 Subjective: Reports right lower cheek continues to feel puffy. Wonders if she will be able to play the piano again. Demonstrates ability to do piano scale slowly with her right hand on the bedside table. Sleeping well, not in pain, no fevers or chills, no other neurologic changes. Objective: Vital Signs Temp Pulse Resp BP Pulse Ox 36.5 C 77 14 105/62 96 08/02/17 06:29 08/02/17 06:29 08/02/17 06:29 08/02/17 08:18 08/02/17 06:29 08/01/17 08/02/17 08/03/17 05:59 05:59 05:59 Intake Total 480 320 510 Output Total 1775 750 Balance -1295 -430 510 Physical Exam - Physical Exam General Appearance: WD/WN, alert, no apparent distress Respiratory: No respiratory distress, No accessory muscle use Skin: normal color, warm/dry Neuro/Psych: alert, normal mood/affect, oriented x 3, motor weakness (Right upper extremity ataxia), speech abnormalities (Mild dysarthria), No abnormal motel manager [id number] ICD10 Worksheet Patient Problems: Problems Problem Status Onset Hemorrhagic cerebrovascular accident (CVA) Acute
[2017-08-03] MEDS: DOCUSATE SODIUM 100 MG CAP PO SCH (08:58)
[2017-08-03] MEDS: SENNOSIDES 1 TAB PO SCH ×2 (08:58→22:14)
--- NOTE | 2017-08-03 10:22 | SOAPPROG ---
SOAP Progress Note Assessment/Plan: [id number] woman status post left basal ganglia hemorrhagic CV on 07/15/2017, thought to be hypertensive in etiology, possibly due to NSAID use, URI and paroxysmal coughing. Today's update: Patient is doing well overall, blood pressure has periodically been low but she has not experienced any orthostatic hypotension. Goal for mobility has been modified to include a full flight of stairs given her housing layout. Plan to obtain a basic metabolic panel for monitoring of electrolytes given her changes to her medications. A total of 25 min was spent on the floor in the care of the patient, the majority of which was spent in counseling and coordination of care regarding blood pressure management strategies and functional goals. Remainder of plan is unchanged. 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 Impaired mobility and self-care * Functional independence measure 81 on 07/24/2017; improved to 93 as of 2017. At supervision level for bed mobility. Transfers are done with supervision to contact guard assist using a trekking pole and a right AFO; she ambulates 150 ft standby assist to contact guard assist. She has a right footdrop which is more ataxia than weakness. She is at supervision to contact guard assist level for activities of daily living. She needs contact guard assist for shower transfer. * Has ambulated 500' on litegate treadmill; ambulating 150' with single-point cane and CGA. Ambulate with nursing to meals. * Continue PT and OT to optimize mobility and activities of daily living for her discharge home with supervision or assistance per . * Mild dysarthria and mild expressive aphasia. * Worse with fatigue. * Cannot use straws for drinking fluids. * Continue Speech and Language Pathology. Abnormal sensation R cheek starting 08/01/2017. * No changes in neurologic exam. * May be related to recovery from basal ganglia hemorrhage. *Hypertension. Blood pressure running low on 10 mg q.day of amlodipine. Decreased to 5 mg p.o. Q.day starting 07/27/2017. Decreased for to 2.5 mg q.day starting 08/01/2017. Obtaining basic metabolic panel on 08/04/2017. * History of regular alcohol use. This also may have increased blood pressure. She reports that she is interested in drinking less or not drinking. This can be further assessed per social work msw on the unit regarding any specific needs that she might have upon discharge. * Neck/shoulder pain. * On acetaminophen PRN, last used 07/30/2017. * Ordered massage. * Possible urinary tract infection. S/P 5 days of antibiotics. Unclear if she truly had a UTI. Monitor for return of symptoms. *Upper respiratory infection and cough. Symptoms largely resolved. Continue benzonatate on a p.r.n. basis, as well as fluticasone nasal spray. * Prophylaxis. Mobility is much improved. Discontinued subcutaneous heparin and famotidine starting 07/31/2017. FOLLOWUP: Unclear from hospital orders at present, but she will likely need followup with neurosurgeon, Dr. Rueda, likely after her discharge from inpatient rehabilitation. Plan is to discharge home with . Set tentative discharge date of 2017. 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 08/03/17 10:18 Subjective: Chief complaint: Low blood pressure and right-sided reduced coordination No acute events overnight. No new shortness of breath or chest pain, no new numbness, tingling, or weakness. The patient is working well with therapies and they are increasing there mobility goal to include a flight of stairs given her home lay out. Therapies do not have concerns, weighted ankle appears to be helpful in proprioceptive feedback and reducing movements associated with incoordination. Patient denies any orthostatic hypotension. Notes that blood pressure has been low at times but she does not notice it. Okay with changing blood pressure medications. Objective: Vital Signs Temp Pulse Resp BP Pulse Ox 36.4 C 74 14 102/64 98 08/03/17 06:04 08/03/17 06:04 08/03/17 06:04 08/03/17 08:58 08/03/17 06:04 08/02/17 08/03/17 08/04/17 05:59 05:59 05:59 Intake Total 320 1090 Output Total 750 Balance -430 1090 Physical Exam - Physical Exam General Appearance: alert, no apparent distress EENT: No scleral icterus (R), No scleral icterus (L) Respiratory: No respiratory distress, No accessory muscle use Cardiac/Chest: normal peripheral pulses, regular rate, rhythm, No edema Skin: normal color, warm/dry, No cyanosis, No diaphoresis Extremities: other (Weights on the right ankle), No pedal edema, No swelling Neuro/Psych: alert, normal mood/affect ICD10 Worksheet Patient Problems: Problems Problem Status Onset Hemorrhagic cerebrovascular accident (CVA) Acute
[2017-08-03] MEDS: FLUTICASONE NASAL 120 SPRAYS/16 GM MDI EACHNARE SCH ×2 (11:07→22:15)
[2017-08-03] MEDS: ACETAMINOPHEN 500 MG TAB PO PRN (16:07)
[2017-08-04] MEDS: FLUTICASONE NASAL 120 SPRAYS/16 GM MDI EACHNARE SCH ×2 (08:46→20:04)
[2017-08-04] MEDS: SENNOSIDES 1 TAB PO SCH ×2 (08:46→22:24)
[2017-08-04] MEDS: DOCUSATE SODIUM 100 MG CAP PO SCH (08:46)
[2017-08-04] MEDS: ACETAMINOPHEN 500 MG TAB PO PRN (08:48)
--- NOTE | 2017-08-04 14:15 | SOAPPROG ---
SOAP Progress Note Assessment/Plan: Assessment: 71-year-old woman status post left basal ganglia hemorrhagic CV on 07/15/2017, thought to be hypertensive in etiology, possibly due to NSAID use, URI and paroxysmal coughing. 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 * Functional independence measure 81 on 07/24/2017; improved to 93 as of 2017. At supervision level for bed mobility. Transfers are done with supervision to contact guard assist using a trekking pole and a right AFO; she ambulates 150 ft standby assist to contact guard assist. She has a right footdrop which is more ataxia than weakness. She is at supervision to contact guard assist level for activities of daily living. She needs contact guard assist for shower transfer. * Has ambulated 500' on litegate treadmill; ambulating 150' with single-point cane and CGA. Ambulate with nursing to meals. * Gait improving, now working on stair climbing. * Continue PT and OT to optimize mobility and activities of daily living for her discharge home with supervision or assistance per . * Mild dysarthria and mild expressive aphasia. * Worse with fatigue. * Cannot use straws for drinking fluids. * Continue Speech and Language Pathology. Abnormal sensation R cheek starting 08/01/2017. * No changes in neurologic exam. Repeat brain imaging is not indicated. * May be related to recovery from basal ganglia hemorrhage. * Hypertension. Blood pressure running low on 2.5 mg q.day of amlodipine. Discontinued starting 08/04/2017. Monitor blood pressures. * History of regular alcohol use. This also may have increased blood pressure. She reports that she is interested in drinking less or not drinking. This can be further assessed per die storage worker on the unit regarding any specific needs that she might have upon discharge. * Neck/shoulder pain. * On acetaminophen PRN, last used 07/30/2017. * Ordered massage. * Possible urinary tract infection. S/P 5 days of antibiotics. Unclear if she truly had a UTI. Monitor for return of symptoms. *Upper respiratory infection and cough. Symptoms largely resolved. Continue benzonatate on a p.r.n. basis, as well as fluticasone nasal spray. * Prophylaxis. Mobility is much improved. Discontinued subcutaneous heparin and famotidine starting 07/31/2017. FOLLOWUP: Unclear from hospital orders at present, but she will likely need followup with neurosurgeon, Dr. Rueda, likely after her discharge from inpatient rehabilitation. Plan is to discharge home with . Set tentative discharge date of 2017. 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 08/04/17 14:13 Subjective: No complaints. Feeling good. Doing well with therapies. Sleeping well, not in pain. Objective: Vital Signs Temp Pulse Resp BP Pulse Ox 36.7 C 55 L 17 99/61 L 93 08/04/17 05:57 08/04/17 05:57 08/04/17 05:57 08/04/17 09:48 08/04/17 05:57 Laboratory Results 08/04/17 06:10 08/03/17 08/04/17 08/05/17 05:59 05:59 05:59 Intake Total 1090 640 596 Balance 1090 640 596 Physical Exam - Physical Exam General Appearance: WD/WN, alert, no apparent distress Respiratory: No respiratory distress, No accessory muscle use Skin: normal color, warm/dry Neuro/Psych: alert, normal mood/affect, oriented x 3, other (Seen ambulating in [place] with PT, tracking pole, no foot drag. Seen working with OT doing grooming and hygiene standing at the sink with no assistive device.) ICD10 Worksheet Patient Problems: Problems Problem Status Onset Hemorrhagic cerebrovascular accident (CVA) Acute
[2017-08-05] MEDS: FLUTICASONE NASAL 120 SPRAYS/16 GM MDI EACHNARE SCH ×2 (08:00→21:38)
[2017-08-05] MEDS: DOCUSATE SODIUM 100 MG CAP PO SCH (08:00)
[2017-08-05] MEDS: SENNOSIDES 1 TAB PO SCH ×2 (08:01→21:54)
--- NOTE | 2017-08-05 12:24 | SOAPPROG ---
SOAP Progress Note Assessment/Plan: Assessment: 71-year-old woman status post left basal ganglia hemorrhagic CV on 07/15/2017, thought to be hypertensive in etiology, possibly due to NSAID use, URI and paroxysmal coughing. 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 * Functional independence measure 81 on 07/24/2017; improved to 93 as of 2017. At supervision level for bed mobility. Transfers are done with supervision to contact guard assist using a trekking pole and a right AFO; she ambulates 150 ft standby assist to contact guard assist. She has a right footdrop which is more ataxia than weakness. She is at supervision to contact guard assist level for activities of daily living. She needs contact guard assist for shower transfer. * Has ambulated 500' on litegate treadmill; ambulating 150' with single-point cane and CGA. Ambulate with nursing to meals. * Gait improving, now working on stair climbing. * Continue PT and OT to optimize mobility and activities of daily living for her discharge home with supervision or assistance per . * Mild dysarthria and mild expressive aphasia. * Worse with fatigue. * Cannot use straws for drinking fluids. * Continue Speech and Language Pathology. Abnormal sensation R cheek starting 08/01/2017. * No changes in neurologic exam. Repeat brain imaging is not indicated. * May be related to recovery from basal ganglia hemorrhage. * Hypertension. Blood pressure running low on 2.5 mg q.day of amlodipine. Discontinued starting 08/04/2017. Blood pressures remain low * History of regular alcohol use. This also may have increased blood pressure. She reports that she is interested in drinking less or not drinking. This can be further assessed per social sciences research scientist on the unit regarding any specific needs that she might have upon discharge. * Neck/shoulder pain. * On acetaminophen PRN, last used 07/30/2017. * Ordered massage. * Possible urinary tract infection. S/P 5 days of antibiotics. Unclear if she truly had a UTI. Monitor for return of symptoms. *Upper respiratory infection and cough. Symptoms largely resolved. Continue benzonatate on a p.r.n. basis, as well as fluticasone nasal spray. * Prophylaxis. Mobility is much improved. Discontinued subcutaneous heparin and famotidine starting 07/31/2017. FOLLOWUP: Unclear from hospital orders at present, but she will likely need followup with neurosurgeon, Dr. Rueda, likely after her discharge from inpatient rehabilitation. Plan is to discharge home with . Set tentative discharge date of 2017. Plan for outpatient PT OT PROFESSOR OF ART HISTORY. Plan: 08/05/17 12:23 Subjective: Doing very well. No new complaints Objective: Vital Signs Temp Pulse Resp BP Pulse Ox 36.5 C 88 16 93/68 L 96 08/05/17 06:29 08/05/17 06:29 08/05/17 06:29 08/05/17 06:29 08/05/17 06:29 Laboratory Results 08/04/17 06:10 08/04/17 08/05/17 08/06/17 05:59 05:59 05:59 Intake Total 640 1141 240 Balance 640 1141 240 Physical Exam - Physical Exam General Appearance: WD/WN, alert, no apparent distress Neck: supple Respiratory: lungs clear, normal breath sounds, No respiratory distress Cardiac/Chest: regular rate, rhythm, No edema Skin: warm/dry Neuro/Psych: alert, normal mood/affect, oriented x 3 ICD10 Worksheet Patient Problems: Problems Problem Status Onset Hemorrhagic cerebrovascular accident (CVA) Acute
[2017-08-06] MEDS: SENNOSIDES 1 TAB PO SCH ×2 (07:39→19:52)
[2017-08-06] MEDS: FLUTICASONE NASAL 120 SPRAYS/16 GM MDI EACHNARE SCH ×2 (07:39→19:51)
[2017-08-06] MEDS: DOCUSATE SODIUM 100 MG CAP PO SCH (07:39)
--- NOTE | 2017-08-06 20:47 | SOAPPROG ---
SOAP Progress Note Assessment/Plan: Assessment: 71-year-old woman status post left basal ganglia hemorrhagic CV on 07/15/2017, thought to be hypertensive in etiology, possibly due to NSAID use, URI and paroxysmal coughing. 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 * Functional independence measure 81 on 07/24/2017; improved to 93 as of 2017. At supervision level for bed mobility. Transfers are done with supervision to contact guard assist using a trekking pole and a right AFO; she ambulates 150 ft standby assist to contact guard assist. She has a right footdrop which is more ataxia than weakness. She is at supervision to contact guard assist level for activities of daily living. She needs contact guard assist for shower transfer. * Has ambulated 500' on litegate treadmill; ambulating 150' with single-point cane and CGA. Ambulate with nursing to meals. * Gait improving, now working on stair climbing. * Continue PT and OT to optimize mobility and activities of daily living for her discharge home with supervision or assistance per . * Mild dysarthria and mild expressive aphasia. * Worse with fatigue. * Cannot use straws for drinking fluids. * Continue Speech and Language Pathology. Abnormal sensation R cheek starting 08/01/2017. * No changes in neurologic exam. Repeat brain imaging is not indicated. * May be related to recovery from basal ganglia hemorrhage. * Hypertension. Blood pressure running low on 2.5 mg q.day of amlodipine. Discontinued starting 08/04/2017. Blood pressures remain low over the weekend * History of regular alcohol use. This also may have increased blood pressure. She reports that she is interested in drinking less or not drinking. This can be further assessed per social studies teacher on the unit regarding any specific needs that she might have upon discharge. * Neck/shoulder pain. * On acetaminophen PRN, last used 07/30/2017. * Ordered massage. * Possible urinary tract infection. S/P 5 days of antibiotics. Unclear if she truly had a UTI. Monitor for return of symptoms. *Upper respiratory infection and cough. Symptoms largely resolved. Continue benzonatate on a p.r.n. basis, as well as fluticasone nasal spray. * Prophylaxis. Mobility is much improved. Discontinued subcutaneous heparin and famotidine starting 07/31/2017. FOLLOWUP: Unclear from hospital orders at present, but she will likely need followup with neurosurgeon, Dr. Rueda, likely after her discharge from inpatient rehabilitation. Plan is to discharge home with . Set tentative discharge date of 2017. Plan for outpatient PT OT RIDE ASSEMBLY SUPERVISOR. Plan: 08/05/17 12:23 08/06/17 20:47 Subjective: No new complaints. Ready to go home soon Objective: Vital Signs Temp Pulse Resp BP Pulse Ox 36.4 C 87 16 97/68 L 96 08/06/17 18:35 08/06/17 18:35 08/06/17 18:35 08/06/17 18:35 08/06/17 18:35 Laboratory Results 08/04/17 06:10 08/05/17 08/06/17 08/07/17 05:59 05:59 05:59 Intake Total 1141 880 834 Output Total 200 Balance 1141 680 834 Physical Exam - Physical Exam General Appearance: WD/WN, alert, no apparent distress Neck: supple Respiratory: No respiratory distress Cardiac/Chest: regular rate, rhythm Skin: warm/dry Neuro/Psych: alert, normal mood/affect, oriented x 3 ICD10 Worksheet Patient Problems: Problems Problem Status Onset Hemorrhagic cerebrovascular accident (CVA) Acute
[2017-08-07] MEDS: SENNOSIDES 1 TAB PO SCH ×2 (08:30→19:34)
[2017-08-07] MEDS: DOCUSATE SODIUM 100 MG CAP PO SCH (08:30)
[2017-08-07] MEDS: FLUTICASONE NASAL 120 SPRAYS/16 GM MDI EACHNARE SCH (10:16)
--- NOTE | 2017-08-07 15:07 | SOAPPROG ---
SOAP Progress Note Assessment/Plan: Assessment: 71-year-old woman status post left basal ganglia hemorrhagic CV on 07/15/2017, thought to be hypertensive in etiology, possibly due to NSAID use, URI and paroxysmal coughing. 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 * Functional independence measure 81 on 07/24/2017; improved to 93 as of 2017 and to 105 as of 08/07/2017. Independent in her room during the day, standby assist at night. Has ambulated 500 ft with tracking pole and supervision. Supervision level for transfers and for 18 stairs using 1 rail independent with ADLs except modified independence for bathing requires supervision in the kitchen due to decreased proprioception and right neglect * Continue PT and OT to optimize mobility and activities of daily living for her discharge home with supervision or assistance per . * Dysarthria resolved * Mild deficits to higher level memory attention and reasoning. * Cannot use straws for drinking fluids. * Continue Speech and Language Pathology. Abnormal sensation R cheek starting 08/01/2017. * No changes in neurologic exam. Repeat brain imaging is not indicated. * May be related to recovery from basal ganglia hemorrhage. * Hypertension. Blood pressure running low on 2.5 mg q.day of amlodipine. Discontinued starting 08/04/2017. Monitor blood pressures. * History of regular alcohol use. This also may have increased blood pressure. She reports that she is interested in drinking less or not drinking. This can be further assessed per social media analyst on the unit regarding any specific needs that she might have upon discharge. * Neck/shoulder pain, resolved. * Possible urinary tract infection. S/P 5 days of antibiotics. Unclear if she truly had a UTI. Monitor for return of symptoms. *Upper respiratory infection and cough. Symptoms largely resolved. Continue benzonatate on a p.r.n. basis, as well as fluticasone nasal spray. * Prophylaxis. Mobility is much improved. Discontinued subcutaneous heparin and famotidine starting 07/31/2017. FOLLOWUP: PCP is Manda Parekh Attended staffing, 15 min. Discussed with case management, dietitian, nursing, PT, OT, WINDOWS CONSULTANT. Plan is to discharge home with on 08/08/2017. Plan for outpatient PT OT WINDOWS CONSULTANT. 08/07/17 15:03 Subjective: Complains of sensation of abdominal gas. She thinks is from drinking skim milk. Otherwise no complaints and ready to go home tomorrow. Objective: Vital Signs Temp Pulse Resp BP Pulse Ox 36.4 C 90 16 98/63 L 94 08/07/17 06:39 08/07/17 06:39 08/07/17 06:39 08/07/17 06:39 08/07/17 06:39 Laboratory Results 08/04/17 06:10 08/06/17 08/07/17 08/08/17 05:59 05:59 05:59 Intake Total 880 1234 560 Output Total 200 Balance 680 1234 560 - Time Spent With Patient Time Spent With Patient: Greater than 35 min floor time today, including more than 50% of time in coordination of care during staffing meeting, and counseling patient. Physical Exam - Physical Exam General Appearance: WD/WN, alert, no apparent distress Respiratory: No respiratory distress, No accessory muscle use Skin: normal color, warm/dry Neuro/Psych: no motor/sensory deficits, alert, normal mood/affect, oriented x 3 ICD10 Worksheet Patient Problems: Problems Problem Status Onset Hemorrhagic cerebrovascular accident (CVA) Acute
[2017-08-07] MEDS ORDERED: FLUTICASONE NASAL 120 SPRAYS/16 GM MDI EACHNARE SCH (21:00)
[2017-08-08 06:21] VITALS: BP 102/72
[2017-08-08] MEDS: SENNOSIDES 1 TAB PO SCH (08:17)
[2017-08-08] MEDS: DOCUSATE SODIUM 100 MG CAP PO SCH (08:17)
--- NOTE | 2017-08-08 16:02 | PDOREHIP ---
Admission [facility] - Admission - 3 Day Assessment Period Admission Date/Day 1: 07/20/17 Day 2: 07/21/17 Day 3: 07/22/17 Discharge [facility] - Discharge - 3 Day Assessment Period 2 Days Prior to Anticipated Discharge Date: 08/06/17 1 Day Prior to Anticipated Discharge Date: 08/07/17 Anticipated Discharge Date: 08/08/17 - Discharge Skin Conditions Unhealed Pressure Ulcer (1 or more/Stage 1 or >)-Discharge: 0. No
--- NOTE | 2017-08-08 23:39 | GDS ---
[f rep st] DISCHARGE SUMMARY ADMISSION DIAGNOSIS: Left basal ganglia hemorrhagic cerebrovascular accident. DISCHARGE DIAGNOSIS: Left basal ganglia hemorrhagic cerebrovascular accident. OTHER DISCHARGE DIAGNOSES: Hypertension, which resolved. PROCEDURES: There were none. COMPLICATIONS: There were none. CONSULTATIONS: There were none. HISTORY OF PRESENT ILLNESS: This patient was admitted from [facility]. She had presented there on 07/15/2017, with a headache, right facial droop and right arm weakness. She had an upper respiratory infection and had been taking cold medicine, and had an accidental aspiration and a violent coughing fit. She had also been taking ibuprofen and aspirin. Head CT in the hospital showed intraparenchymal hemorrhage in the left basal ganglia, likely due to hypertension. She was initially on a nicardipine IV infusion and was admitted to the intensive care unit. She was transitioned to oral antihypertensives. She had urinalysis suggestive of a urinary tract infection which was treated with ceftriaxone IV while she was in the hospital. She had very good progress while she was in rehabilitation. Her initial functional independence measure was 81 on 07/24/2017, which is consistent with borderline [facility] facility versus assisted living level of function. She required minimal assist for bed mobility, she needed contact guard assist for [id number] transfers using a quad cane. She was able to ambulate 70 feet with a quad cane, a right AFO and contact guard assist. She was able to climb and descend 1 step with total assistance. She had neglect of the right upper extremity, and required minimal assist for dressing. She required total assist for shower transfers and she bathed with moderate assist. There was mild dysarthria and mild expressive aphasia, which was worse with fatigue. By 08/07/2017, her functional independence measure had improved to 105, which is consistent with independent function. She was independent in her room during the day, but still had standby assist for mobility at night. She was able to ambulate 500 feet with a trekking pole and supervision. She no longer required an ankle-foot orthosis on the right. She was able to do transfers and negotiate 18 stairs using 1 rail with supervision. She was independent with activities of daily living except modified independence for bathing, and required supervision in the kitchen due to decreased proprioception on the right upper extremity and right neglect. Her dysarthria resolved. She was noted to have mild deficits to higher level memory, attention, and reasoning. Regarding elevated blood pressure, this resolved over time; her amlodipine was tapered and ultimately discontinued on 08/04/2017, subsequent to which her blood pressures were in the 90-102 range systolic and 50-72 range diastolic. It may be that elevated blood pressure was due to alcohol dependence. She reported drinking 2 glasses of wine every evening, 7 days a week. Additionally, NSAID use , as well as coughing may have caused acutely high blood pressure that led to the stroke. Regarding history of alcohol dependence, there were no signs or symptoms of alcohol withdrawal noted during hospital or during her rehabilitation stay. She reported that she wanted to be abstinent from alcohol in the future, and she will be discharged with referrals to resources to treat alcohol dependence. LABORATORIES AND STUDIES: During her stay, she had a basic metabolic profile done on 08/04/2017, which was completely normal. DISCHARGE PLAN: Condition upon discharge is good. Discharge disposition is home with her . She will continue outpatient PT, OT, and HOME CARE ASSOCIATE. DISCHARGE MEDICATIONS: 1. Acetaminophen 650 mg p.o. q.4 hours p.r.n. 2. Fluticasone 1 spray each naris at bedtime. 3. Polyethylene glycol 17 g p.o. daily p.r.n. 4. Senna 1 tab p.o. b.i.d. ISSUES TO BE ADDRESSED AT FOLLOWUP: 1. Functional status and mild dysarthria. To continue PT, OT, and HOME CARE ASSOCIATE. Can follow up with her primary care provider regarding her progress. 2. Alcohol dependence. She has been referred to outpatient resources to encourage maintenance of abstinence. 3. History of elevated blood pressure, may have been due to alcohol dependence. Advise routine monitoring. /[id number]/MODL and [id number], 08/08/17, [id number] [facility]ENTERPolina
== END 2017-08-08 13:20 | disposition home or self-care (01) | DRG 57 ==
LOC: BREH 16:48
PROVIDERS: ADMIT Internal Medicine; ATTEND Internal Medicine
PROC: F07M3ZZ Motor Function Treatment of Musculoskeletal System - Whole Body (ICD-10-PCS; principal; 2017-07-20)
PROC: F08Z7ZZ Vocational Activities and Functional Community or Work Reintegration Skills Treatment (ICD-10-PCS; principal; 2017-07-20)
PROC: F0636ZZ Communicative/Cognitive Integration Skills Treatment of Neurological System - Whole Body (ICD-10-PCS; principal; 2017-07-20)
DX: I69.251 Hemiplegia and hemiparesis following other nontraumatic intracranial hemorrhage affecting right dominant side (principal); I69.220 Aphasia following other nontraumatic intracranial hemorrhage; I69.121 Dysphasia following nontraumatic intracerebral hemorrhage; I69.122 Dysarthria following nontraumatic intracerebral hemorrhage; I69.219 Unspecified symptoms and signs involving cognitive functions following other nontraumatic intracranial hemorrhage; I10 Essential (primary) hypertension; J06.9 Acute upper respiratory infection, unspecified; F10.20 Alcohol dependence, uncomplicated; K59.00 Constipation, unspecified; N39.0 Urinary tract infection, site not specified
CPT/HCPCS: 92507-GN; 92508-GN; 92522-GN; 92610-GN; 97110-GO; 97110-GP; 97112-GO; 97112-GP; 97116-GP; 97162-GP; 97166-GO; 97530-GO; 97530-GP; 97535-GO; J1644